=== PATIENT | female | born 1965 | race Two or more races ===

== ENCOUNTER 2018-04-14 08:47 | Emergency (ER) | payer OTHER ==
[2018-04-14 09:07] VITALS: TEMP 97.8; BMI 21.7
--- NOTE | 2018-04-14 09:39 | PDOC ---
History of Present Illness - General Chief Complaint: Lightheaded Stated Complaint: Blood Pressure Problem Time Seen by Provider: 04/14/18 09:32 History Source: Patient Exam Limitations: No Limitations Past History - Past Medical History Allergies/Adverse Reactions: Allergies Allergy/AdvReac Type Severity Reaction Status Date / Time No Known Drug Allergies Allergy Verified 11/15/14 15:21 Home Medications: Ambulatory Orders NK [No Known Home Medication] 04/14/18 Anemia: Yes COPD: No Dialysis: No HTN: No Liver Disease: No - Surgical History Cardiac Surgery: No - Immunization History Immunization Up to Date: No - Suicide/Smoking/Psychosocial Hx Smoking History: Never smoked Have you smoked in the past 12 months: No Information on smoking cessation initiated: No Hx Alcohol Use: No Drug/Substance Use Hx: No Substance Use Type: None Hx Substance Use Treatment: No *Physical Exam - Vital Signs Last Vital Signs Temp Pulse Resp BP Pulse Ox 97.8 F 84 18 162/78 100 04/14/18 09:04 04/14/18 09:04 04/14/18 09:04 04/14/18 09:04 04/14/18 09:04 Moderate Sedation - Procedure Monitoring Vital Signs: Procedure Monitoring Vital Signs Temperature 97.8 F 04/14/18 09:04 Pulse Rate 84 04/14/18 09:04 Respiratory Rate 18 04/14/18 09:04 Blood Pressure 162/78 04/14/18 09:04 O2 Sat by Pulse Oximetry (%) 100 04/14/18 09:04 ED Treatment Course - LABORATORY CBC & Chemistry Diagram: 04/14/18 10:07 04/14/18 10:07 Medical Decision Making - Medical Decision Making Pt was seen at bedside, also will be seen by attending Dr. Finnegan. Pt presenting with high blood pressure (systolic 190s), R-sided frontal headache, blurry vision, PE showed thyroid goiter on L side of neck, not erythematous or tender. Repeat BP at bedside was 128/83, HR in low 90s, O2 99% on RA. No photophobia, no chest wall tenderness. Heart and lung sounds clear. Considering thyroid storm vs untreated HTN vs menopause vs other endocrine disease (pheochromocytoma) Ordered work-up including CBC, CMP, TSH/free T4, troponin, ECG, serum beta-hcg. Provided 650 mg PO tylenol for improvement of headache. Will continue to reassess pt and monitor for symptomatic improvement. 04/14/18 10:11 All labs WNL (including free T4/TSH), serum test negative. Pt being taken for chest x-ray. Will call Dr. Eugene to discuss results and ensure follow-up visit before discharge. 04/14/18 11:13 Chest x-ray showed no acute pulmonary process -- tracheal deviation to the R due to thyroid goiter. Calling Dr. Eugene's office. 04/14/18 11:40 Speaking with nurse at Dr. Eugene's office to see if pt can be seen urgently in clinic. 04/14/18 12:03 Considering normal lab results and imaging pt can be discharged to home with follow-up. Pt advised to follow-up with PCP in 1-2 days. Strict return precautions provided with pt understanding. Dr. Eugene can see the pt in clinic tomorrow morning. 04/14/18 12:18 *DC/Admit/Observation/Transfer Diagnosis at time of Disposition: Hypertensive emergency - Discharge Dispostion Disposition: HOME Condition at time of disposition: Improved Decision to Admit order: No - Referrals Referrals: Cyndy Valles MD [Primary Care Provider] - - Patient Instructions Printed Discharge Instructions: DI for Malignant Hypertension Additional Instructions: You were seen in the ER today for high blood pressure and headache. The results of your labs and imaging today were normal. Please follow-up with your primary care doctor tomorrow morning to discuss your visit and make sure your symptoms have improved. Please return to the ER if you have any worsening headache, vision changes, chest pain, further spikes in blood pressure, development of fevers or chills, loss of consciousness, inability to tolerate food or fluids, or any other concerns. - Post Discharge Activity
[2018-04-14] MEDS ORDERED: ACETAMINOPHEN 325 MG TABLET (FP) PO ONE (10:04)
[2018-04-14] MEDS ORDERED: ACETAMINOPHEN 325 MG TABLET (FP) ONE (10:07)
[2018-04-14 10:30] LABS: BASO % 0.2 % (0-2.0); EOS % 0.2 % (0-4.5); HEMATOCRIT 38.3 % (32.4-45.2); HEMOGLOBIN 13.2 GM/dL (10.7-15.3); LYMPH % 15.9 % (8-40); MCH 30.9 pg (25.7-33.7); MCHC 34.4 g/dl (32.0-36.0); MEAN PLT VOLUME 8.5 fl (7.5-11.1); MONO % 5.4 % (3.8-10.2); NEUT % 78.3 % (42.8-82.8); PLATELET COUNT 314 K/MM3 (134-434); RBC 4.26 M/mm3 (3.60-5.2); WHITE BLOOD COUNT 5.6 K/mm3 (4.0-10.0)
[2018-04-14 10:56] LABS: ALBUMIN 3.7 g/dl (3.4-5.0); ALK PHOS 80 U/L (45-117); ANION GAP 6 MMOL/L (8-16); BILIRUBIN,TOTAL 0.4 mg/dL (0.2-1); BLOOD UREA NITROGEN 8 mg/dL (7-18); CALCIUM 8.4 mg/dL (8.5-10.1); CHLORIDE 107 mmol/L (98-107); CO2 27 mmol/L (21-32); CREATININE 0.5 mg/dL (0.55-1.3); GLUCOSE,RANDOM 94 mg/dL (74-106); POTASSIUM 4.3 mmol/L (3.5-5.1); SGOT/AST 16 U/L (15-37); SGPT/ALT 20 U/L (13-61); SODIUM 140 mmol/L (136-145); TOT PROT 7.3 g/dl (6.4-8.2)
--- NOTE | 2018-04-14 11:09 | PDOC ---
Attending Attestation - Resident Resident Name: JeffEstefanía - ED Attending Attestation I have performed the following: I have examined & evaluated the patient, The case was reviewed & discussed with the resident, I agree w/resident's findings & plan - HPI HPI: 04/14/18 11:05 53-year-old female with history of benign thyroid nodule not on any medications , beginning menopause but otherwise no severe past medical history presents with second episode over 1 week of sudden onset hot flash, extremity tingling 4 , headache and blurry vision. First episode was about 9 days ago, she was at [employer] and her blood pressure was noted to be 260 systolic, resolved after about 15 minutes including symptoms. 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 No chest pain or difficulty breathing or palpitations, the school nurse measured her blood pressure is 190 systolic so she presents for evaluation. Does not take any medications, denies smoking or drugs, denies any significant weight loss/pain or cold/heat intolerance. Reports exertional dyspnea 2-3 flights for several months, denies any leg swelling or calf pain. - Physicial Exam PE: 04/14/18 11:07 vital signs are normal here, 121/80 on my examination without intervention Well-appearing, conversant, no acute distress Pupils equal and reactive to light, extraocular movements intact No JVD or audible carotid bruit Heart is regular about murmur Lungs are clear Abdomen benign No leg swelling or calf tenderness - Medical Decision Making 04/14/18 11:07 53-year-old female with episodic elevated blood pressure, likely symptomatic with headache and blurry vision and full body tingling. Does not appear to have anxiety or panic attack syndrome, question endocrine such as thyroid versus pheochromocytoma, less likely primary cardiac or pulmonary. Check labs, EKG, chest x-ray Tylenol for headache, blood pressure control not needed at this time Reassess, will arrange disposition with patient's PCP, Dr. Eugene Heart Score/ECG Review - History History: Slightly suspicious - Electrocardiogram EKG: Normal - Age Age: 45-65 - Risk Factors Based on the list above the patient has:: No risk factors known - Troponin Troponin: </= normal limit - Score Heart Score - Total: 1 #1 ECG reviewed & interpreted by me at: 10:14 General ECG Interpretation: Sinus Rhythm, Normal Rate (78), Normal Intervals ( qtc 444, (no LVH)), No acute ischemic changes
[2018-04-14 12:41] VITALS: BP 121/76; PULSE 78
--- NOTE | 2018-04-14 15:41 | EKG ---
Test Reason : Blood Pressure : / mmHG Vent. Rate : 078 BPM Atrial Rate : 078 BPM P-R Int : 150 ms QRS Dur : 066 ms QT Int : 390 ms P-R-T Axes : 061 036 067 degrees QTc Int : 444 ms NORMAL SINUS RHYTHM WITH SINUS ARRHYTHMIA NORMAL ECG WHEN COMPARED WITH ECG OF 01-DEC-2015 10:49, NO SIGNIFICANT CHANGE WAS FOUND Confirmed by ONUR MARTINEZ MD ([id number]) on 04/14/2018 3:41:25 PM Referred By: Confirmed By:ONUR MARTINEZ MD
== END 2018-04-14 12:40 | disposition home or self-care (01) ==
LOC: JER 08:47
DX: I16.0 Hypertensive urgency (principal); I10 Essential (primary) hypertension
CPT/HCPCS: 36415; 71046-TC-FY; 80053; 84439; 84443; 84484; 84703; 85025; 93005; 93010; 99283-25

== ENCOUNTER → 2022-08-31 | Day surgery (SDC) | payer OTHER | END | disposition home or self-care (01) | LOC: JRADIR 10:24 | PROVIDERS: ATTEND Internal Medicine Endocrinology, Diabetes & Metabolism | PROC: 0GBG3ZX Excision of Left Thyroid Gland Lobe, Percutaneous Approach, Diagnostic (ICD-10-PCS; principal; 2022-08-31) | DX: E04.1 Nontoxic single thyroid nodule (principal) | CPT/HCPCS: 10005; 76942; 88173; 88305-TC ==